=== PATIENT | male | born 1995 | race Two or more races ===

== ENCOUNTER 2019-05-07 12:52 | Emergency (ER) | payer SELFPAY ==
[~2019-05-07] VITALS: Ht 162.6 cm; Wt 65.0 kg
[2019-05-07] MEDS ORDERED: SODIUM CHLORIDE 0.9% 500 ML IV ONE (15:45)
[2019-05-07] MEDS ORDERED: CEFTRIAXONE 1 G PREMIX 50 ML IV ONE (16:00)
[2019-05-07 16:52] VITALS: BP 105/68
[2019-05-07 16:56] LABS: HEMATOCRIT 41.3 % (42.0-52.0); HEMOGLOBIN 14.1 g/dL (14.0-18.0); MEAN CORPUSCULAR HEMOGLOBIN 30.2 pg (28.0-32.0); MEAN CORPUSCULAR VOLUME 88.3 fL (80.0-94.0); PLATELET 342 x1000/uL (130-400); RED BLOOD CELL COUNT 4.67 mill/uL (4.7-6.1); RED CELL DISTRIBUTION WIDTH 13.4 % (11.6-14.6)
== END 2019-05-07 17:51 | disposition home or self-care (01) ==
LOC: ER 12:52
DX: N48.1 Balanitis (principal); R36.9 Urethral discharge, unspecified
CPT/HCPCS: 36415; 85027; 96365; 99283; J0696; J7040

== ENCOUNTER 2019-05-16 12:07 | Emergency (ER) | payer SELFPAY ==
[~2019-05-16] VITALS: Ht 152.4 cm; Wt 61.0 kg
[2019-05-16 13:18] VITALS: BP 104/64
== END 2019-05-16 16:47 | disposition home or self-care (01) ==
LOC: ER 12:07
DX: N48.1 Balanitis (principal)
CPT/HCPCS: 99281